=== PATIENT | female | born 1955 | race Caucasian/White ===

== ENCOUNTER 2016-03-29 05:18 | Inpatient (IN) | payer BC ==
[2016-03-29] MEDS ORDERED: SODIUM CHLORIDE 0.9% 1,000 ML IV STA (05:20)
[2016-03-29] MEDS ORDERED: LORazepam 2 MG/ML SYRINGE IV PRN ×2 (05:21)
[2016-03-29] MEDS ORDERED: NOREPINEPHRIN 4 MG-0.9% NS PMX 4 MG in SALINE 1 250ML.BAG IV ONE (05:22)
[2016-03-29] MEDS ORDERED: PROPOFOL 500 MG in EMPTY BAG 1 BAG IV SCH (05:30)
[2016-03-29 05:42] LABS: CH 30.9; CHCM 28.9; HCT 42.7 % (34.0-46.0); HDW 2.22; HGB 12.7 gm/dL (11.4-16.0); Hypochromasia Marked; Immature Gran Flag Slight; MCH 31.8 pg (25.0-35.0); MCHC 29.6 g/dL (31.0-37.0); MCV 107.4 fL (80.0-100.0); Macrocytosis Moderate; Mean Platelet Volume 7.3; RBC 3.98 m/uL (3.80-5.40); RDW 12.3 % (11.5-15.5); WBC 17.9 k/uL (3.8-10.6); WBC (Perox) 18.59
[2016-03-29 05:42] LABS: Glucose,Whole Blood 280 mg/dL (75-99)
[2016-03-29 05:43] LABS: INR 1.3 (<1.1); Partial Thromboplastin Time 53.9 sec (22.0-30.0); Prothrombin Time 12.8 sec (9.0-12.0)
--- NOTE | 2016-03-29 05:46 | ED ---
General Adult HPI - General Chief complaint: Cardiac Arrest/CPR Stated complaint: Cardiac Arrest Time Seen by Provider: 03/29/16 05:20 Source: EMS, RN notes reviewed Mode of arrival: EMS Limitations: altered mental status, physical limitation - History of Present Illness Initial comments: Patient is a 60-year-old female presenting to the emergency department following cardiac arrest. Patient originally called EMS for difficulty in breathing. EMS for arrived at 336. Patient did receive ACLS protocol for approximately 35 minutes. At that point patient had return of circulation. Patient was intubated. EMS did lose pulses 4 times in route. Patient is intubated and unable to provide any history. Patient reportedly does have a history of COPD. Review of Systems ROS Statement: Those systems with pertinent positive or pertinent negative responses have been documented in the HPI. ROS Other: All systems not noted in ROS Statement are negative. Limitations: ROS unobtainable due to patients medical condition Past Medical History Past Medical History: COPD Past Surgical History: Unable to Obtain Past Alcohol Use History: Unable to Obtain Past Drug Use History: Unable to Obtain General Exam Limitations: altered mental status, physical limitation General appearance: obtunded Head exam: Present: atraumatic Eye exam: Present: other (Pupils are fixed) ENT exam: Present: other (Intubated) Neck exam: Present: normal inspection Respiratory exam: Present: other (No spontaneous breath sounds. Equal breath sounds with bagging insufflation.) Cardiovascular Exam: Present: regular rate, normal rhythm, other (Refill 4-5 seconds) Expanded Peripheral pulses: 0: Radial (R), Radial (L), Dorsalis Pedis (R), Dorsalis Pedis (L), 1+: Carotid (R), Carotid (L), 2+: Femoral (R), Femoral (L) GI/Abdominal exam: Present: soft. Absent: tenderness Extremities exam: Present: normal inspection Neurological exam: Present: other (Unresponsive) Psychiatric exam: Present: other (Unresponsive) Skin exam: Present: cyanosis (Peripheral cyanosis of the digits.) Course Vital Signs 03/29/16 03/29/16 03/29/16 05:18 05:33 05:36 Temperature 94.5 F L Pulse Rate 61 58 L 58 L Respiratory 12 16 16 Rate Blood Pressure 66/34 74/42 74/46 O2 Sat by Pulse 98 100 100 Oximetry 02/03/29/16 03/29/16 05:37 05:40 05:51 Temperature 94.9 F L Pulse Rate 61 56 L 72 Respiratory 12 16 16 Rate Blood Pressure 66/34 80/52 157/74 O2 Sat by Pulse 97 100 100 Oximetry - Reevaluation(s) Reevaluation #1: 03/29/16 06:34 Patient reevaluated. Blood pressure is improving. Family is now present and updated. Family is aware of patient's extremely poor medical condition 03/29/16 06:48 Case was discussed with Dr. Rollins, who will consult for critical care. 03/29/16 07:04 Case was discussed with Dr. batista, who will admit for Dr. Bullock. EKG Findings - EKG Comments: EKG Findings:: Normal sinus rhythm 64. HI 156. QRS 98. QT 494. QTC 509. Normal axis. Normal QRS. Prominent inferior Q waves. Procedures - Central Line Placement Right SC Consent Obtained: emergent situation Time Out Performed: Yes Patient Placed on Monitor/Pulse Ox: Yes Prep: mask, gown, gloves Central Line Prep: Povidone-Iodine 1% Patient Tolerated Procedure: well Complications: none, other (Unable to obtain access) Right Femoral Consent Obtained: emergent situation Time Out Performed: Yes Patient Placed on Monitor/Pulse Ox: Yes Prep: mask, gown, gloves Central Line Prep: Povidone-Iodine 1% Central Line Lumen Inserted: triple Central Line Position: good blood return, all ports aspirated, flushed, capped, sutured in place with 3-0 nylon Dressing Applied: Tegaderm Patient Tolerated Procedure: well Complications: none Medical Decision Making - Lab Data Result diagrams: 03/29/16 05:17 03/29/16 05:17 Lab Results 03/29/16 03/29/16 03/29/16 Range/Units 05:17 05:17 05:17 WBC 17.9 H (3.8-10.6) k/uL RBC 3.98 (3.80-5.40) m/uL Hgb 12.7 (11.4-16.0) gm/dL Hct 42.7 (34.0-46.0) % MCV 107.4 H (80.0-100.0) fL MCH 31.8 (25.0-35.0) pg MCHC 29.6 L (31.0-37.0) g/dL RDW 12.3 (11.5-15.5) % Plt Count 236 (150-450) k/uL Neutrophils % (Manual) 52.0 % Band Neutrophils % 9.0 % Lymphocytes % (Manual) 30.0 % Monocytes % (Manual) 3.0 % Eosinophils % (Manual) 2.0 % Metamyelocytes % 2.5 % Myelocytes % 1.5 % Neutrophils # (Manual) 10.9 H (1.3-7.7) k/uL Lymphocytes # (Manual) 5.4 H (1.0-4.8) k/uL Monocytes # (Manual) 0.5 (0-1.0) k/uL Eosinophils # (Manual) 0.4 (0-0.7) k/uL Nucleated RBCs 0 (0-0) /100 WBC Manual Slide Review Performed Large Platelets Present Hypochromasia Marked Poikilocytosis (manual Present Anisocytosis (manual) Present Macrocytosis Moderate PT (9.0-12.0) sec INR (<1.1) APTT (22.0-30.0) sec Sample Site ABG pH (7.35-7.45) ABG pCO2 (35-45) mmHg ABG pO2 (83-108) mmHg ABG HCO3 (21-25) mmol/L ABG Total CO2 (19-24) mmol/L ABG O2 Saturation (94-97) % ABG Base Excess mmol/L FiO2 % Sodium 143 (137-145) mmol/L Potassium 5.0 (3.5-5.1) mmol/L Chloride 112 H (98-107) mmol/L Carbon Dioxide 11 L (22-30) mmol/L Anion Gap 20 mmol/L BUN 18 H (7-17) mg/dL Creatinine 1.28 H (0.52-1.04) mg/dL Est GFR (MDRD) Af Amer 52 (>60 ml/min/1.73 sqM) Est GFR (MDRD) Non-Af 43 (>60 ml/min/1.73 sqM) Glucose 314 H (74-99) mg/dL POC Glucose (mg/dL) (75-99) mg/dL POC Glu [employer] ID Calcium 7.8 L (8.4-10.2) mg/dL Total Bilirubin 0.4 (0.2-1.3) mg/dL AST 249 H (14-36) U/L ALT 244 H (9-52) U/L Alkaline Phosphatase 128 H (38-126) U/L Total Creatine Kinase 459 H (30-135) U/L CK-MB (CK-2) 6.4 H* (0.0-2.4) ng/mL CK-MB (CK-2) Rel Index 1.4 Troponin I 0.119 H* (0.000-0.034) ng/mL NT-Pro-B Natriuret Pep pg/mL Total Protein 5.9 L (6.3-8.2) g/dL Albumin 3.1 L (3.5-5.0) g/dL 03/29/16 03/29/16 03/29/16 Range/Units 05:17 05:17 05:41 WBC (3.8-10.6) k/uL RBC (3.80-5.40) m/uL Hgb (11.4-16.0) gm/dL Hct (34.0-46.0) % MCV (80.0-100.0) fL MCH (25.0-35.0) pg MCHC (31.0-37.0) g/dL RDW (11.5-15.5) % Plt Count (150-450) k/uL Neutrophils % (Manual) % Band Neutrophils % % Lymphocytes % (Manual) % Monocytes % (Manual) % Eosinophils % (Manual) % Metamyelocytes % % Myelocytes % % Neutrophils # (Manual) (1.3-7.7) k/uL Lymphocytes # (Manual) (1.0-4.8) k/uL Monocytes # (Manual) (0-1.0) k/uL Eosinophils # (Manual) (0-0.7) k/uL Nucleated RBCs (0-0) /100 WBC Manual Slide Review Large Platelets Hypochromasia Poikilocytosis (manual Anisocytosis (manual) Macrocytosis PT 12.8 H (9.0-12.0) sec INR 1.3 (<1.1) APTT 53.9 H (22.0-30.0) sec Sample Site ABG pH (7.35-7.45) ABG pCO2 (35-45) mmHg ABG pO2 (83-108) mmHg ABG HCO3 (21-25) mmol/L ABG Total CO2 (19-24) mmol/L ABG O2 Saturation (94-97) % ABG Base Excess mmol/L FiO2 % Sodium (137-145) mmol/L Potassium (3.5-5.1) mmol/L Chloride (98-107) mmol/L Carbon Dioxide (22-30) mmol/L Anion Gap mmol/L BUN (7-17) mg/dL Creatinine (0.52-1.04) mg/dL Est GFR (MDRD) Af Amer (>60 ml/min/1.73 sqM) Est GFR (MDRD) Non-Af (>60 ml/min/1.73 sqM) Glucose (74-99) mg/dL POC Glucose (mg/dL) 280 H (75-99) mg/dL POC Glu [employer] ID Anger, Andie Calcium (8.4-10.2) mg/dL Total Bilirubin (0.2-1.3) mg/dL AST (14-36) U/L ALT (9-52) U/L Alkaline Phosphatase (38-126) U/L Total Creatine Kinase (30-135) U/L CK-MB (CK-2) (0.0-2.4) ng/mL CK-MB (CK-2) Rel Index Troponin I (0.000-0.034) ng/mL NT-Pro-B Natriuret Pep 368 pg/mL Total Protein (6.3-8.2) g/dL Albumin (3.5-5.0) g/dL 03/29/16 Range/Units 05:48 WBC (3.8-10.6) k/uL RBC (3.80-5.40) m/uL Hgb (11.4-16.0) gm/dL Hct (34.0-46.0) % MCV (80.0-100.0) fL MCH (25.0-35.0) pg MCHC (31.0-37.0) g/dL RDW (11.5-15.5) % Plt Count (150-450) k/uL Neutrophils % (Manual) % Band Neutrophils % % Lymphocytes % (Manual) % Monocytes % (Manual) % Eosinophils % (Manual) % Metamyelocytes % % Myelocytes % % Neutrophils # (Manual) (1.3-7.7) k/uL Lymphocytes # (Manual) (1.0-4.8) k/uL Monocytes # (Manual) (0-1.0) k/uL Eosinophils # (Manual) (0-0.7) k/uL Nucleated RBCs (0-0) /100 WBC Manual Slide Review Large Platelets Hypochromasia Poikilocytosis (manual Anisocytosis (manual) Macrocytosis PT (9.0-12.0) sec INR (<1.1) APTT (22.0-30.0) sec Sample Site RBRAC ABG pH <7.00 L* (7.35-7.45) ABG pCO2 71 H* (35-45) mmHg ABG pO2 >400 H (83-108) mmHg ABG HCO3 13 L (21-25) mmol/L ABG Total CO2 15 L (19-24) mmol/L ABG O2 Saturation 100.0 H (94-97) % ABG Base Excess -18.2 mmol/L FiO2 100 % Sodium (137-145) mmol/L Potassium (3.5-5.1) mmol/L Chloride (98-107) mmol/L Carbon Dioxide (22-30) mmol/L Anion Gap mmol/L BUN (7-17) mg/dL Creatinine (0.52-1.04) mg/dL Est GFR (MDRD) Af Amer (>60 ml/min/1.73 sqM) Est GFR (MDRD) Non-Af (>60 ml/min/1.73 sqM) Glucose (74-99) mg/dL POC Glucose (mg/dL) (75-99) mg/dL POC Glu [employer] ID Calcium (8.4-10.2) mg/dL Total Bilirubin (0.2-1.3) mg/dL AST (14-36) U/L ALT (9-52) U/L Alkaline Phosphatase (38-126) U/L Total Creatine Kinase (30-135) U/L CK-MB (CK-2) (0.0-2.4) ng/mL CK-MB (CK-2) Rel Index Troponin I (0.000-0.034) ng/mL NT-Pro-B Natriuret Pep pg/mL Total Protein (6.3-8.2) g/dL Albumin (3.5-5.0) g/dL Critical Care Time Critical Care Time: Yes Total Critical Care Time: 47 Disposition Clinical Impression: Cardiac arrest, Dyspnea Disposition: ADMITTED IP TO THIS HOSP Condition: Critical
[2016-03-29 05:51] LABS: Add Differential Manual Differential; Calcium 7.8 mg/dL (8.4-10.2); Total Bilirubin 0.4 mg/dL (0.2-1.3); Total Protein 5.9 g/dL (6.3-8.2)
[2016-03-29 05:54] LABS: Manual Review Performed; Metamyelocytes % 2.5 %; Myelocytes % 1.5 %; Nucleated Red Blood Cells 0 /100 WBC (0-0); Total Cells Counted 200
[2016-03-29 05:55] LABS: Large Platelets Present
[2016-03-29 05:59] LABS: ABG PH <7.00 (7.35-7.45)
[2016-03-29 06:00] LABS: ABG Base Excess -18.2 mmol/L; ABG HCO3 13 mmol/L (21-25); ABG PCO2 71 mmHg (35-45); ABG PO2 >400 mmHg (83-108); ABG TCO2 15 mmol/L (19-24)
--- NOTE | 2016-03-29 06:07 | XR ---
EXAMINATION TYPE: XR chest 1V portable DATE OF EXAM: 03/29/2016 5:42 AM COMPARISON: 04/22/2013 HISTORY: Cardiac arrest, dyspnea TECHNIQUE: Single frontal view of the chest is obtained. FINDINGS: ET tube is noted in place with its tip approximately 1 cm above the aretha. The ET tube is not well v isualized. There is no focal air space opacity, pleural effusion, or pneumothorax seen. The cardiac silhouette size is within normal limits. The osseous structures are intact. IMPRESSION: 1. No active lung infiltrates. 2. ET tube is noted in place.
[2016-03-29 06:12] LABS: Creatine Kinase MB 6.4 ng/mL (0.0-2.4); Troponin I 0.119 ng/mL (0.000-0.034)
[2016-03-29] MEDS ORDERED: SODIUM BICARB 8.4% 50 ML SYR (1 MEQ/ML) IV STA (06:13)
[2016-03-29] MEDS ORDERED: DEXTROSE 5% IN WATER 1,000 ML with SODIUM BICARB (1 MEQ/ML) 150 ML IV SCH (06:15)
--- NOTE | 2016-03-29 06:42 | XR ---
EXAMINATION TYPE: XR chest 1V portable DATE OF EXAM: 03/29/2016 6:23 AM COMPARISON: 03/29/2016, 5:38 AM hours HISTORY: ET tube placement TECHNIQUE: Single frontal view of the chest is obtained. Portable study AP upright 03/29/2016, 6:18 AM hours FINDINGS: There is ET tube noted in place with its tip approximately 2 cm above the aretha. There is no focal air space opacity, pleural effusion, or pneumothorax seen. The cardiac silhouette size is within normal limits. There is suggestion of old left lower rib fractures in the lateral aspe ct. Right lower chest is not completely included in the radiograph. IMPRESSION: 1. ET tube is noted in place with its tip approximately 2 cm above the aretha. 2. No focal lung consolidation. 3. No significant interval change.
[2016-03-29] MEDS ORDERED: MORPHINE SULFATE 4 MG/ML SYRINGE IV PRN (07:06)
[2016-03-29] MEDS ORDERED: NALOXONE 0.4 MG/ML 1 ML VIAL IV PRN (07:06)
[2016-03-29] MEDS ORDERED: SODIUM CHLORIDE 0.9% 1,000 ML IV SCH (07:15)
[2016-03-29] MEDS ORDERED: PROPOFOL 500 MG in EMPTY BAG 1 BAG IV STA (07:37)
--- NOTE | 2016-03-29 07:38 | CT ---
EXAMINATION TYPE: CT brain wo con DATE OF EXAM: 03/29/2016 7:10 AM COMPARISON: NONE HISTORY: Unresponsive, AMS. Prior stroke. CT DLP: 1081.60 mGycm. Automated Exposure Control for Dose Reduction was Utilized. TECHNIQUE: CT scan of the head is performed without contrast. FINDINGS: There is acute subarachnoid hemorrhage with filling of the perimesencephalic cisterns ext ending bilaterally. There is additional subarachnoid hemorrhage seen in several sulci are sample left frontal sulcus near axial image 30. There is no hydrocephalus. There is however midline shift to the right measuring roughly 6 mm at level of septum pellucidum on axial image 30. There is loss of asael l cadet-white matter differentiation felt present. There is more vague area of low-attenuation in the right frontal parietal level suggesting older infarct in the right MCA distribution. Swelling around the mid brain is present. There appears to be inferior tonsillar herniation into the foramen magnum. The calvarium is intact. There is mild mucosal thickening in the paranasal sinuses bilaterally with r elative sparing of the frontal sinuses. Globes are intact bilaterally. IMPRESSION: Large acute subarachnoid hemorrhage with cranial edema and suggestion of cytotoxic change s as there is global loss of normal cadet-white matter differentiation. There is evidence of transtent orial and uncal herniation with loss of normal extra-axial CSF fluid surrounding brainstem. All findi ngs suggest poor prognosis. Midline shift is seen. 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 Case discussed with ER physician at time of dictation.
[2016-03-29 08:31] LABS: Glucose,Whole Blood 239 mg/dL (75-99)
[2016-03-29 08:39] VITALS: BP 103/48
[2016-03-29] MEDS ORDERED: PANTOPRAZOLE 40 MG/10 ML VIAL IV SCH (09:00)
[2016-03-29 09:12] VITALS: RESP 17; TEMP 93.6
[2016-03-29 10:44] VITALS: PULSE 86; BMI 33.2
--- NOTE | 2016-03-29 18:19 | HP ---
DATE OF ADMISSION: 03/29/2016 DATE PATIENT : 03/29/2016 FINAL DIAGNOSIS/POSSIBLE CAUSE OF : Coronary artery disease. OTHER MEDICAL CONDITIONS: COPD. HOSPITAL COURSE: This patient presented with a cardiac arrest and did receive ACLS protocol for 35 minutes, had some return of circulation was intubated, did lose pulse 4 times en route. I was called by Dr. Walsh this morning about admission to the ICU. Patient subsequently . I did not see the patient. Dr. Jc from pulmonary was consulted. For more details, refer to the ER notes and the EMS notes.
== END 2016-03-29 09:09 | disposition expired | DRG 303 ==
LOC: EDBD → EC 05:18 → MERGE 07:05 → 6ICU 07:05
PROVIDERS: ADMIT Hospitalist; ATTEND Hospitalist
PROC: 5A1935Z Respiratory Ventilation, Less than 24 Consecutive Hours (ICD-10-PCS; principal; 2016-03-29)
PROC: 0BH17EZ Insertion of Endotracheal Airway into Trachea, Via Natural or Artificial Opening (ICD-10-PCS; 2016-03-29)
PROC: 06HM33Z Insertion of Infusion Device into Right Femoral Vein, Percutaneous Approach (ICD-10-PCS; 2016-03-29)
DX: I25.10 Atherosclerotic heart disease of native coronary artery without angina pectoris (principal); Z86.74 Personal history of sudden cardiac arrest; J44.9 Chronic obstructive pulmonary disease, unspecified
CPT/HCPCS: 36415; 36556; 36600; 51702; 70450; 71010; 80053; 82550; 82553; 82805; 83880; 84484; 85025; 85610; 85730; 93005; 94002; 96361; 96365; 96366; 96367; 96375; 99291